=== PATIENT | male | born 1965 | race Two or more races ===

== ENCOUNTER 2022-03-07 19:49 | Emergency (ER) | payer OTHER ==
[~2022-03-07] VITALS: Ht 177.8 cm; Wt 78.0 kg
[2022-03-07] MEDS ORDERED: FIORICET (20:37)
[2022-03-07] MEDS ORDERED: GABAPENTIN (20:38)
[2022-03-07] MEDS ORDERED: [UNRECOGNIZED DRUG - OTHER] (20:38)
[2022-03-07] MEDS ORDERED: LOSARTAN 25 MG (20:38)
[2022-03-07] MEDS ORDERED: [UNRECOGNIZED DRUG - OTHER] (20:39)
[2022-03-07] MEDS ORDERED: VITAMINA D (20:39)
== END 2022-03-07 23:44 | disposition home or self-care (01) ==
LOC: ER 19:49
DX: M79.5 Residual foreign body in soft tissue (principal); G35 Multiple sclerosis